=== PATIENT | male | born 1995 | race American Indian/Alaskan Native ===

== ENCOUNTER → 2020-07-04 21:10 | Emergency (ER) | payer SELFPAY | END | disposition left against medical advice (07) | LOC: ED 21:10 | DX: M79.605 Pain in left leg (principal); Z53.21 Procedure and treatment not carried out due to patient leaving prior to being seen by health care provider ==

== ENCOUNTER 2021-10-17 11:21 | Emergency (ER) | payer MEDICAID ==
[2021-10-17 12:03] VITALS: BP 132/65
== END 2021-10-17 15:00 | disposition left against medical advice (07) ==
LOC: ED 11:21
DX: M54.2 Cervicalgia (principal); Z53.21 Procedure and treatment not carried out due to patient leaving prior to being seen by health care provider